=== PATIENT | female | born 1960 ===

== ENCOUNTER 2020-05-31 14:30 | Inpatient (IN) | payer OTHER ==
[~2020-05-31] VITALS: Ht 154.9 cm; Wt 72.6 kg
[2020-06-01] MEDS ORDERED: FORTAMET500 MG PO (12:39)
[2020-06-01] MEDS ORDERED: ZESTRIL2.5 MG PO (12:39)
[2020-06-01] MEDS ORDERED: ATORVASTATIN CA10 MG PO (12:39)
== END 2020-06-02 16:10 | disposition home or self-care (01) | DRG 741 ==
LOC: OB/GYN 06-01 08:30 → O/R 06-01 13:58 → OB/GYN 06-01 13:58
PROVIDERS: ADMIT Specialist; ATTEND Specialist
PROC: 0UT24ZZ Resection of Bilateral Ovaries, Percutaneous Endoscopic Approach (ICD-10-PCS; 2020-06-01)
PROC: 0UB74ZZ Excision of Bilateral Fallopian Tubes, Percutaneous Endoscopic Approach (ICD-10-PCS; 2020-06-01)
PROC: 07BC4ZZ Excision of Pelvis Lymphatic, Percutaneous Endoscopic Approach (ICD-10-PCS; 2020-06-01)
PROC: 0UT94ZZ Resection of Uterus, Percutaneous Endoscopic Approach (ICD-10-PCS; principal; 2020-06-01 08:30)
DX: C54.1 Malignant neoplasm of endometrium (principal); N80.0 Endometriosis of uterus; I10 Essential (primary) hypertension; E11.9 Type 2 diabetes mellitus without complications; E78.5 Hyperlipidemia, unspecified